=== PATIENT | female | born 1955 | race Caucasian/White ===

== ENCOUNTER 2018-02-04 08:20 | Outpatient (CLI) | payer BC, OTHER ==
[2018-02-04 12:57] LABS: BASOPHILS # (AUTO) 0.1 10^3/uL (0.0-0.1); BASOPHILS % (AUTO) 1.3 %; EOSINOPHILS # (AUTO) 0.2 10^3/uL (0.0-0.7); EOSINOPHILS % (AUTO) 3.7 %; HGB - HEMOGLOBIN 14.8 g/dL (12.0-16.0); LYMPHOCYTES % (AUTO) 34.4 %; MEAN CORPUSCULAR HEMOGLOBIN 29.3 pg (27.0-31.0); MEAN CORPUSCULAR HGB CONC 33.5 g/dL (32.0-36.0); MEAN CORPUSCULAR VOLUME 87.5 fL (81.0-99.0); MEAN PLATELET VOLUME 9.1 fL (7.9-10.8); MONOCYTES # (AUTO) 0.5 10^3/uL (0.0-1.0); MONOCYTES % (AUTO) 8.9 %; NEUTROPHILS % (AUTO) 51.7 %; PLT - PLATELET COUNT 324 10^3/uL (130-450); RED BLOOD COUNT 5.03 10^6/uL (4.20-5.40); RED CELL DISTRIBUTION WIDTH 14.3 % (12.0-15.0); WHITE BLOOD COUNT 5.7 x10^3/uL (4.8-10.8)
[2018-02-04 13:13] LABS: ALBUMIN 4.6 g/dL (3.2-5.5); ALBUMIN/GLOBULIN RATIO 1.4 (1.0-2.2); ALKALINE PHOSPHATASE 76 IU/L (42-121); ALT ALANINE AMINOTRANSFERASE 25 IU/L (10-60); AST ASPARTATE AMINOTRANSFERASE 23 IU/L (10-42); BILIRUBIN,TOTAL 0.7 mg/dL (0.2-1.0); BUN - BLOOD UREA NITROGEN 21 mg/dL (6-20); CALCIUM 9.8 mg/dL (8.5-10.3); CARBON DIOXIDE - CO2 27 mmol/L (21-32); CHLORIDE 103 mmol/L (101-111); CHOLESTEROL 287 mg/dL; CREATININE 0.8 mg/dL (0.4-1.0); GFR - MDRD 72 (>89); GLUCOSE 86 mg/dL (70-100); HDL CHOLESTEROL 71 mg/dL; LDL CHOLESTEROL,CALCULATED 201 mg/dL; LDL/HDL RATIO 2.8 (<4.4); SODIUM 135 mmol/L (135-145); TOTAL PROTEIN 7.8 g/dL (6.7-8.2); VLDL CHOLESTEROL 15 mg/dL
== END 2018-02-04 08:21 | disposition home or self-care (01) ==
LOC: LAB.R 08:20
PROVIDERS: ATTEND Physician Assistant Medical
DX: Z00.00 Encounter for general adult medical examination without abnormal findings (principal)
CPT/HCPCS: 80053; 80061; 83721; 84443; 85025

== ENCOUNTER 2018-03-18 09:52 | Outpatient (CLI) | payer OTHER ==
--- NOTE | 2018-03-19 17:16 | Mammography Report ---
Reason: MAMMOGRAPHIC SCREENING FOR BREAST CANCER Procedure Date: 03/18/2018 Accession Number: [id number] / [id number] Procedure: KWAN - Screening Mammo Dig Bilat CPT Code: FULL RESULT: EXAM: Screening Mammo Dig Bilat DATE: 03/18/2018 10:19 AM CLINICAL HISTORY: 62-year-old female presents for screening mammogram. TECHNIQUE: Bilateral CC and MLO views were obtained. COMPARISON: 12/18/2015, 07/01/2010, 03/27/2008. FINDINGS: The breasts demonstrate scattered fibroglandular densities bilaterally. No suspicious masses, clustered microcalcifications, or regions of architectural distortion are identified. IMPRESSION: Negative examination RECOMMENDATION: Routine annual screening unless otherwise clinically indicated. BIRADS CATEGORY 1: Negative STANDARD QUALIFYING STATEMENTS: 1. This examination was not reviewed with the aid of Computer-Aided Detection (CAD). 2. A negative or benign imaging report should not delay biopsy if clinically suspicious findings are present. Consider surgical consultation if warrented. More than 5% of cancers are not identified by imaging. 3. Dense breasts may obscure an underlying neoplasm. 4. This examination was reviewed without the aid of 3D breast imaging (tomosynthesis).
== END 2018-03-18 09:53 | disposition home or self-care (01) ==
LOC: DI 09:52
PROVIDERS: ATTEND Physician Assistant Medical
DX: Z12.31 Encounter for screening mammogram for malignant neoplasm of breast (principal)
CPT/HCPCS: 77067

== ENCOUNTER 2019-01-28 07:38 | Outpatient (CLI) | payer OTHER ==
[2019-01-28 08:20] LABS: ALBUMIN 4.6 g/dL (3.2-5.5); ALBUMIN/GLOBULIN RATIO 1.5 (1.0-2.2); ALKALINE PHOSPHATASE 87 IU/L (42-121); ALT ALANINE AMINOTRANSFERASE 23 IU/L (10-60); AST ASPARTATE AMINOTRANSFERASE 22 IU/L (10-42); BILIRUBIN,TOTAL 0.8 mg/dL (0.2-1.0); BUN - BLOOD UREA NITROGEN 20 mg/dL (6-20); CARBON DIOXIDE - CO2 22 mmol/L (21-32); CHLORIDE 104 mmol/L (101-111); CHOL/HDL RATIO 3.8 (<4.4); CHOLESTEROL 261 mg/dL; CREATININE 0.7 mg/dL (0.4-1.0); GFR - MDRD 84 (>89); GLUCOSE 95 mg/dL (70-100); HDL CHOLESTEROL 69 mg/dL; LDL CHOLESTEROL,CALCULATED 178 mg/dL; LDL/HDL RATIO 2.6 (<4.4); SODIUM 139 mmol/L (135-145); TOTAL PROTEIN 7.7 g/dL (6.7-8.2); VLDL CHOLESTEROL 14 mg/dL
[2019-01-28 08:27] LABS: BASOPHILS # (AUTO) 0.1 10^3/uL (0.0-0.1); BASOPHILS % (AUTO) 0.9 %; EOSINOPHILS # (AUTO) 0.2 10^3/uL (0.0-0.7); HGB - HEMOGLOBIN 14.5 g/dL (12.0-16.0); LYMPHOCYTES % (AUTO) 36.3 %; MEAN CORPUSCULAR HEMOGLOBIN 28.9 pg (27.0-31.0); MEAN CORPUSCULAR HGB CONC 32.5 g/dL (32.0-36.0); MEAN CORPUSCULAR VOLUME 88.8 fL (81.0-99.0); MEAN PLATELET VOLUME 9.7 fL (7.9-10.8); MONOCYTES # (AUTO) 0.5 10^3/uL (0.0-1.0); MONOCYTES % (AUTO) 8.5 %; NEUTROPHILS # (AUTO) 2.8 10^3/uL (1.5-6.6); NEUTROPHILS % (AUTO) 49.9 %; PLT - PLATELET COUNT 301 10^3/uL (130-450); RED BLOOD COUNT 5.02 10^6/uL (4.20-5.40); WHITE BLOOD COUNT 5.5 x10^3/uL (4.8-10.8)
== END 2019-01-28 07:39 | disposition home or self-care (01) ==
LOC: LAB 07:38
PROVIDERS: ATTEND Nurse Practitioner
DX: Z00.00 Encounter for general adult medical examination without abnormal findings (principal); E78.2 Mixed hyperlipidemia
CPT/HCPCS: 36415; 80053; 80061; 83721; 84443; 85025

== ENCOUNTER 2019-03-20 16:23 | Outpatient (CLI) | payer MEDICARE, OTHER ==
--- NOTE | 2019-03-21 01:17 | Ultrasound Report ---
Reason: PELVIC PAIN Procedure Date: 03/20/2019 Accession Number: [id number] / [id number] Procedure: US - Pelvic w/Transvaginal CPT Code: FULL RESULT: EXAM: PELVIC ULTRASOUND WITH TRANSVAGINAL EXAM DATE: 03/20/2019 05:36 PM. CLINICAL HISTORY: PELVIC PAIN. Left pelvic pain palpated by physician. History of tubal ligation in 1979. COMPARISON: None. TECHNIQUE: Realtime transabdominal pelvic scan performed to identify the uterus and adnexa and as an overview of other pelvic structures, followed by transvaginal scan to provide greater detail of the uterus and adnexa, with static image documentation. FINDINGS: Uterus: 8.5 x 5.2 x 6.2 cm, volume 144.7 cc. Anteverted position. Large round solid heterogeneous mass seen in the mid uterus replacing the endometrium, measures 3.8 x 4.4 x 3.8 cm. Areas of vascularity seen within this mass. This could represent a large submucosal fibroid versus an endometrial mass as seen with endometrial malignancy. Further workup recommended. A pelvic MRI without and with contrast could be obtained to further evaluate. Cervix: Unremarkable. Right Ovary: The right ovary is not seen, obscured by bowel gas. Visualized right adnexa appears unremarkable. Left Ovary: 2.5 x 1.9 x 2.7 cm, volume 6.7 cc. Normal echotexture and blood flow. Free Fluid: None. IMPRESSION: 1. Large round solid heterogeneous mass seen in the mid uterus replacing the endometrium, measures 3.8 x 4.4 x 3.8 cm. Areas of vascularity seen within this mass. This could represent a large submucosal fibroid versus an endometrial mass as seen with endometrial malignancy. Further workup recommended. A pelvic MRI without and with contrast could be obtained to further evaluate. RADIA
== END 2019-03-20 16:24 | disposition home or self-care (01) ==
LOC: DI 16:23
PROVIDERS: ATTEND Nurse Practitioner
DX: N85.9 Noninflammatory disorder of uterus, unspecified (principal)
CPT/HCPCS: 76830; 76856

== ENCOUNTER 2019-03-22 10:30 | Outpatient (CLI) | payer MEDICARE ==
[2019-03-22] MEDS ORDERED: GADOBUTROL 7.5 MMOL/7.5 ML VIAL IVP ONE (11:40)
[2019-03-22] MEDS ORDERED: GADOBUTROL 7.5 MMOL/7.5 ML VIAL ONE (11:41)
--- NOTE | 2019-03-22 12:24 | MRI Report ---
Reason: PELVIC MASS Procedure Date: 03/22/2019 Accession Number: [id number] / [id number] Procedure: MRI - Pelvis W/WO CPT Code: FULL RESULT: EXAM: MRI PELVIS WITHOUT AND WITH CONTRAST EXAM DATE: 03/22/2019 11:50 AM. CLINICAL HISTORY: Pelvic mass. Abnormal ultrasound. COMPARISON: PELVIC W/TRANSVAGINAL 03/20/2019 4:33 PM. TECHNIQUE: Multiplanar, multisequence T1-weighted and fluid-sensitive sequences of the pelvis before and after administration of intravenous contrast. IV contrast: 7.5 mL Gadavist. Other: None. FINDINGS: Uterus: The uterus is slightly enlarged measuring 8.6 x 6.1 x 5.9 cm. There is a dominant low signal mass in the anterior mid uterine segment measuring 4.4 x 3.8 x 4.8 cm characteristic for a fibroid. The fibroid is submucosal in location. On postcontrast imaging there is minor enhancement suggesting partial viability. The remainder portions of the uterus are intact. Endometrium: The endometrial lining is distorted due to underlying fibroid. Otherwise, no thickening or masses identified. Cervix/vagina: Unremarkable. Ovaries: The ovaries are likely atrophic but obscured by metallic clip artifact presumably related to prior tubal ligation/occlusion procedure. No adnexal abnormality is identified. Pelvic Cavity: The visualized bowel, bladder, and urethra are unremarkable. No lymphadenopathy. No free fluid in the pelvis. Other: Osseous structures are unremarkable. No marrow signal abnormality or significant degenerative changes seen. IMPRESSION: 1. Mildly enlarged uterus secondary to 4.4 x 3.8 x 4.8 cm submucosal mass in the anterior mid uterine segment most compatible with a partially viable fibroid. 2. No pelvic abnormality demonstrated otherwise. Atrophic ovaries partially obscured by metallic artifact from tubal procedure seen. RADIA
== END 2019-03-22 10:31 | disposition home or self-care (01) ==
LOC: DI 10:30
PROVIDERS: ATTEND Nurse Practitioner
DX: D25.0 Submucous leiomyoma of uterus (principal)
CPT/HCPCS: 72197; A9585

== ENCOUNTER 2019-04-28 11:00 | Outpatient (CLI) | payer MEDICARE ==
[2019-04-28 11:24] LABS: BASOPHILS # (AUTO) 0.1 10^3/uL (0.0-0.1); BASOPHILS % (AUTO) 0.9 %; EOSINOPHILS # (AUTO) 0.2 10^3/uL (0.0-0.7); EOSINOPHILS % (AUTO) 2.4 %; HGB - HEMOGLOBIN 14.7 g/dL (12.0-16.0); LYMPHOCYTES # (AUTO) 2.3 10^3/uL (1.5-3.5); LYMPHOCYTES % (AUTO) 35.6 %; MEAN CORPUSCULAR HEMOGLOBIN 30.1 pg (27.0-31.0); MEAN CORPUSCULAR VOLUME 91.2 fL (81.0-99.0); MEAN PLATELET VOLUME 9.5 fL (7.9-10.8); MONOCYTES # (AUTO) 0.6 10^3/uL (0.0-1.0); MONOCYTES % (AUTO) 9.7 %; NEUTROPHILS # (AUTO) 3.4 10^3/uL (1.5-6.6); NEUTROPHILS % (AUTO) 51.1 %; PLT - PLATELET COUNT 334 10^3/uL (130-450); RED BLOOD COUNT 4.88 10^6/uL (4.20-5.40); RED CELL DISTRIBUTION WIDTH 14.1 % (12.0-15.0); WHITE BLOOD COUNT 6.6 x10^3/uL (4.8-10.8)
[2019-04-28 11:38] LABS: ALBUMIN 4.7 g/dL (3.2-5.5); ALBUMIN/GLOBULIN RATIO 1.4 (1.0-2.2); BILIRUBIN,TOTAL 0.7 mg/dL (0.2-1.0); CALCIUM 10.1 mg/dL (8.5-10.3); CREATININE 0.6 mg/dL (0.4-1.0)
--- NOTE | 2019-04-28 14:38 | CONSULTATION NOTE ---
Consultation Report: Anesthesia pre-op consult. 63 yo F for TLAVH w/hx of bad reaction to anesthesia in following BTL. Pt states that she was extremely sore t/o her entire body for 2-3 days. Given the information and patient ability to recall the events, I suspect the pt was given succinylcholine as paralytic with residual muscle soreness from fasciculations associated with the drug. She state she did not have that same reaction with other procedures (not involving paralytics) I explained that can be avoided with her future surgery and that should prevent that same result. NPO status, types of drugs used, airway, overnight stay, and TAP blocks were also briefly discussed.
== END 2019-04-28 11:01 | disposition home or self-care (01) ==
LOC: LAB 11:00 → RT 11:01
PROVIDERS: ATTEND Obstetrics & Gynecology
DX: Z01.810 Encounter for preprocedural cardiovascular examination (principal); Z12.4 Encounter for screening for malignant neoplasm of cervix; R19.00 Intra-abdominal and pelvic swelling, mass and lump, unspecified site; R10.2 Pelvic and perineal pain
CPT/HCPCS: 36415; 80053; 85025; 93005

== ENCOUNTER 2019-04-28 11:27 | Outpatient (CLI) | payer MEDICARE ==
--- NOTE | 2019-04-29 08:39 | XRAY Report ---
Reason: UTERINE MASS; PELVIC PAIN, PRE OP Procedure Date: 04/28/2019 Accession Number: [id number] / [id number] Procedure: XR - Chest 2 View X-Ray CPT Code: 31428 Final Report FULL RESULT: EXAM: CHEST RADIOGRAPHY EXAM DATE: 04/28/2019 11:29 AM. CLINICAL HISTORY: UTERINE MASS; PELVIC PAIN, PRE OP. COMPARISON: None. TECHNIQUE: 2 views. FINDINGS: Lungs/Pleura: No focal opacities evident. No pleural effusion. No pneumothorax. Normal volumes. Mediastinum: Heart and mediastinal contours are unremarkable. Atheromatous calcification seen at the aortic arch. Other: None. IMPRESSION: No evidence for acute cardiopulmonary process. RADIA
== END 2019-04-28 11:28 | disposition home or self-care (01) ==
LOC: DI 11:27
PROVIDERS: ATTEND Obstetrics & Gynecology
DX: Z01.89 Encounter for other specified special examinations (principal); Z12.4 Encounter for screening for malignant neoplasm of cervix; R19.00 Intra-abdominal and pelvic swelling, mass and lump, unspecified site; R10.2 Pelvic and perineal pain
CPT/HCPCS: 36415; 71046; 80053; 85025; 93005

== ENCOUNTER 2019-05-11 06:13 | Day surgery (SDC) | payer MEDICARE ==
[2019-05-11] MEDS ORDERED: LACTATED RINGERS 1,000 ML IV ONE ×3 (06:24→11:28)
[2019-05-11] MEDS ORDERED: ACETAMINOPHEN 1,000 MG/100 ML 100 ML IV ONE (06:25)
[2019-05-11] MEDS ORDERED: CELECOXIB 100 MG CAPSULE PO ONE (06:26)
[2019-05-11] MEDS ORDERED: GABAPENTIN 400 MG CAPSULE ONE (06:27)
[2019-05-11] MEDS ORDERED: CEFAZOLIN SODIUM IN 0.9 % NACL 2 GM/100 ML BAG IV ONE (06:31)
--- NOTE | 2019-05-11 07:25 | ANESTHESIA ---
Pre-Anesthesia VS, & Labs - Diagnosis uterine mass, pelvic pain - Procedure total laparoscopic hysterectomy Vital Signs: Temp Pulse Resp BP Pulse Ox 36.6 C 84 16 126/84 H 96 05/11/19 06:41 05/11/19 06:41 05/11/19 06:41 05/11/19 06:41 05/11/19 06:41 Height 5 ft 3 in Weight (kg) 74 kg - NPO >8 hours - Is Patient ?: No - Lab Results Lab results reviewed: Yes Home Medications and Allergies Clobetasol Propionate/Emoll [Clobetasol Emollient 0.05% Crm] 1 applic TP DAILY 04/28/19 Multivitamin [Multiple Vitamins] 1 each PO DAILY 04/28/19 [place]-3S/Dha/Epa/Fish Oil [Fish Oil 1,200 mg Softgel] 1 each PO ONCE 04/28/19 Allergies/Adverse Reactions: Allergies Allergy/AdvReac Type Severity Reaction Status Date / Time Sulfa (Sulfonamide AdvReac Emesis Verified 04/28/19 13:41 Antibiotics) Anes History & Medical History - Anesthetic History Anesthesia Complications: reports: No previous complications, Muscle weakness (sore for 2-3 days after succs for BTL in 1980s) Family history of Anesthesia Complications: Denies Family history of Malignant Hyperthermia: Denies Exam General: Alert, Oriented x3, Cooperative Dental: WNL Mouth Openin Fingerbreadth Neck Mobility: Normal Mallampati classification: II Thyromental Distance: 4-6 cm Respiratory: Lungs clear, Normal breath sounds, No respiratory distress, No accessory muscle use Cardiovascular: Regular rate Neurological: Normal speech Mental/Cognitive Status: Alert/Oriented X3, Normal for patient Cognitive Status: Within normal limits Plan Anesthesia Type: General, Transverse Abdominis Plane (TAP) Block (possible, if open) Consent for Procedure(s) Verified and Reviewed: Yes Code Status: Attempt Resuscitation ASA classification: 2-Mild systemic disease Is this case an emergency?: No
[2019-05-11] MEDS ORDERED: LIDOCAINE MPF 2%-EPI 1:200000 20 ML VIAL ONE ×2 (07:44→08:29)
[2019-05-11] MEDS ORDERED: LIDOCAINE 2%-EPI 1:100000 20 ML MDV SUBQ ONE ×2 (08:15)
[2019-05-11] MEDS ORDERED: METHYLENE BLUE 0.5% 50 MG/10 ML AMPULE ONE (09:43)
--- NOTE | 2019-05-11 11:07 | OPERATIVE REPORT ---
Operative Report - General Procedure Date: 05/11/19 Planned Procedure: TLH BSO Pre-Op Diagnosis: Pelvic pain, uterine mass Procedure Performed: TLH, BSO Post Op Diagnosis: Intracavitary uterine mass, adhesion of left fallopian tube - Procedure Note Primary Surgeon: loc Secondary Surgeon: marysol Anesthesia Provider: Italo Anesthesia Technique: General ET tube Pathology: Uterus, ovaries, fallopian tubes IV Fluids (mL): 1,500 Estimated Blood Loss (mL): 150 Urine Output (mL): 200 (blue tinged) Indications: Pelvic pain, uterine mass Findings: Adhesed left fallopian tube to posterior sidewall extending into the cul de sac Both fallopian tubes "clipped" in their midline with a tubal device Intracavitary mass c/w fibroid Normal ovaries and pelvic peritoneum Complications: None
[2019-05-11] MEDS ORDERED: ONDANSETRON ODT 4 MG TABLET TL PRN (11:15)
[2019-05-11] MEDS ORDERED: ONDANSETRON 4 MG/2 ML VIAL IVP PRN (11:15)
[2019-05-11] MEDS ORDERED: oxyCODONE 5 MG TABLET PO PRN (11:15)
[2019-05-11] MEDS ORDERED: LACTATED RINGERS 1,000 ML IV SCH (12:00)
[2019-05-11] MEDS: ACETAMINOPHEN 500 MG TABLET PO SCH ×2 (13:00→15:48)
[2019-05-11] MEDS ORDERED: SIMETHICONE CHEW 80 MG TABLET PO SCH (14:00)
[2019-05-11 15:41] VITALS: BP 115/64
--- NOTE | 2019-05-11 16:29 | Discharge Plan ---
Discharge Plan Problem Reviewed?: Yes Disposition: Home, Self Care Condition: Good Diet: Regular Activity Restrictions: No lifting more than 10lbs. Nothing in the vagina. Shower Restrictions: Yes (Do not shower until noon on 05/12. No baths. ) Driving Restrictions: No No Smoking: If you smoke, Please STOP! Call for help. Follow-up with: Olimpia Renee MD [Provider Admit Priv/Credential] - (Has fuv in 9 days. )
--- NOTE | 2019-05-11 16:34 | PROVIDER PROGRESS NOTE ---
Objective - Vital Signs/Intake & Output Vital Signs: Vital Signs x48h Temp Pulse Pulse Pulse Resp BP BP 05/11/19 15:40 96.8 F L 64 24 115/64 05/11/19 13:45 97.7 F 77 16 105/54 L 05/11/19 12:45 97.0 F L 72 16 112/65 05/11/19 11:45 97.5 F L 74 16 109/64 05/11/19 11:40 97.9 F 69 14 108/64 05/11/19 11:25 97.7 F 66 16 110/72 05/11/19 11:20 97.7 F 68 16 105/68 05/11/19 11:10 97.7 F 68 14 105/70 05/11/19 11:05 97.7 F 84 16 107/64 05/11/19 11:00 98.2 F 90 16 94/57 L 05/11/19 10:55 98.2 F 76 16 96/60 05/11/19 10:52 98.4 F 78 14 101/57 L Pulse Ox 05/11/19 15:40 97 05/11/19 13:45 94 05/11/19 12:45 95 05/11/19 11:45 96 05/11/19 11:40 97 05/11/19 11:25 96 05/11/19 11:20 98 05/11/19 11:10 96 05/11/19 11:05 97 05/11/19 11:00 95 05/11/19 10:55 95 05/11/19 10:52 94 Intake & Output: Intake & Output 05/08/19 05/09/19 05/10/19 05/11/19 23:59 23:59 23:59 23:59 Intake Total 1800 Output Total 750 Balance 1050 Assessment/Plan - Problem List (1) Pelvic pain in female Impression: 63yo POD #0 s/p TLH, BSO, cystoscopy for pelvic pain. Doing well postop. Feeling pretty alert but yet can't keep eyes open well. OOB OK once with assist. Urinated once, fully, no sensation of incomplete emptying Pain is minimal. Ate crackers and OJ. O: AVSS. Alert, eyes closing, NAD Abd soft, nt/nd Incisions c/d/i without erythema LE without c/c/e A/P: Routine progressive postop care. Saline lock IV. Pt is dedicated to opiod-free course and is declining scheduled NSAIDs as well. If patient can ambulate without assistance then she can be discharged home whenever she desires.
[2019-05-11] MEDS ORDERED: NAPROXEN 250 MG TABLET PO SCH (18:00)
[2019-05-11] MEDS ORDERED: DOCUSATE SODIUM 100 MG CAPSULE PO SCH (21:00)
--- NOTE | 2019-05-11 22:35 | OPERATIVE REPORT ---
DATE OF SERVICE: 05/11/2019 Physician: Olimpia Renee MD PREOPERATIVE DIAGNOSES 1. Pelvic pain and dyspareunia. 2. Uterine mass. POSTOPERATIVE DIAGNOSES 1. Pelvic pain and dyspareunia. 2. Uterine mass. 3. Pelvic adhesive disease. PROCEDURE PERFORMED: Total laparoscopic hysterectomy with bilateral salpingo-oophorectomy, and cysto scopy. SURGEON: Olimpia Renee MD. HEAD HOUSEKEEPER: Sivan. ANESTHESIA: General with an ET tube. ESTIMATED BLOOD LOSS: 150 mL. IV FLUIDS: 1500 mL. URINE OUTPUT: 200 mL, blue tinged. COUNTS: Correct x2. COMPLICATIONS: None apparent. DISPOSITION: Stable to recovery room. PROPHYLAXIS: SCDs to bilateral lower extremities; 2 grams of Ancef prior to the surgical start. SPECIMENS: Uterus, fallopian tubes, ovaries and cervix sent to pathology. FINDINGS 1. Intracavitary uterine mass consistent with a fibroid. 2. Adhesed left fallopian tube to the posterior sidewall and extending down into the area of the cul -de-sac. 3. Both fallopian tubes were transected with a tubal ligation device. 4. Normal-appearing ovaries and pelvic peritoneum. COUNSELING: The patient has a new onset of dyspareunia and a uterine mass. She wanted definitive cole rgical therapy, and so she chose hysterectomy, salpingectomy was recommended to decrease cancer risk. Ultimately, the patient also chose to have a bilateral oophorectomy to reduce the risk of ongoing p ain, reoperation, or ovarian cancer. DESCRIPTION OF PROCEDURE: The patient was brought to the operating room, where she was induced with general anesthesia. She was placed in low lithotomy in [facility]. Her arms were tucked at h er sides. A bimanual examination revealed a sharply anteverted uterus and no adnexal masses. She wa s prepped and draped in the usual sterile fashion. A speculum was placed, and the cervix was visuali zed and grasped with a single-tooth tenaculum. A Pryv uterine manipulator was placed into the cavit y and the balloon was inflated. The tenaculum was removed and the cup was pressed flush against the cervix. A Retana catheter was then placed. My over gloves were changed. For the laparoscopy, all por ts were placed under direct visualization. All of them were 5 mm, 10-mm curvilinear incision was mad e in the inferior portion of the umbilicus. This was first numbed with 2% lidocaine with epinephrine . Local was used for the other port sites as well. A total of 28 mL of local was used. The abdomin al tissue was tented upward and a 5-mm Visiport was placed into the peritoneal cavity. Opening press ure was low and the abdomen was insufflated to 15 mmHg. Inspection revealed a normal liver margin. The patient had some adhesions from the ascending colon to the right lower quadrant peritoneum. Thes e were not dissected during the surgery. The patient was placed in Trendelenburg, and she had a carmen ycardic event. The pneumoperitoneum was released and she was flattened out. She responded well to a nesthesia's treatment of the issue and then was able to tolerate insufflation and Trendelenburg again . A slightly enlarged and lobular uterus was visualized. Normal adnexa were seen. Two lateral troc ars were then placed 2 cm medial to the ASIS on each side. The fimbriated portion of the left fallop bob tube was excised, as it was in the way of the dissection. The infundibulopelvic ligament on the left side was divided and the dissection was continued down to the round ligament, which was divided in its mid portion. Dissection of the anterior leaf of the broad ligament was carried down to the le tray of the lower uterine segment. The incision was then carried towards the midline in order to deve lop a bladder flap. The vasculature was skeletonized as much as possible. The same procedure was th en carried forth on the contralateral side. The left fallopian tube was found to be adherent to the posterior leaf of the broad ligament, extending almost to the level of the cul-de-sac. This was diss ected free and removed from the trocar. The uterine vasculature was then taken on both sides by aminta collins medially to each prior dissection. The anterior bladder flap was further developed. The colpot viviane was performed with both the LigaSure and with a Harmonic scalpel. Visualization of the pedicles revealed the absence of bleeding. On attempting to remove the uterus from the vagina, the VCare came off the specimen. A right-angle r etractor and a posterior weighted speculum were placed and the cervix was grasped with a tenaculum. The fundus could not be delivered through the vaginal cuff and so the uterus was bivalved with a 10 b lade. After the cavity was opened, the intracavitary mass was visualized. This was grasped with a d ouble-tooth tenaculum and the specimen was removed from the patient. The specimen was intact with juani th ovaries visualized. The vaginal cuff was then closed with a running layer of 0 Vicryl. Hemostasi s was excellent. The Retana catheter was removed and cystoscopy was performed. The bladder was free of masses or sutures. There was no blood in the bladder. Bilateral brisk ureteral efflux was seen. The patient's bladder was emptied and the cystoscope was removed. The skin incisions were closed wi th subcutaneous 4-0 Monocryl, and then with Dermabond over top. The patient was returned to the supi ne position prior to waking. TD: 05/11/2019 12:04
== END 2019-05-11 18:45 | disposition home or self-care (01) ==
LOC: SDS 06:13 → MS2 11:15 → UNDOADMIN 11:15 → MS2 11:15 → SDS 18:45 → UNDODISIN 18:45
PROVIDERS: ATTEND Obstetrics & Gynecology
PROC: 0TJB8ZZ Inspection of Bladder, Via Natural or Artificial Opening Endoscopic (ICD-10-PCS; 2019-05-11)
PROC: 0UT94ZZ Resection of Uterus, Percutaneous Endoscopic Approach (ICD-10-PCS; principal; 2019-05-11 07:30)
PROC: 0UT74ZZ Resection of Bilateral Fallopian Tubes, Percutaneous Endoscopic Approach (ICD-10-PCS; 2019-05-11 07:30)
DX: D25.1 Intramural leiomyoma of uterus (principal); N73.6 Female pelvic peritoneal adhesions (postinfective); E66.9 Obesity, unspecified; Z68.30 Body mass index [BMI] 30.0-30.9, adult; E78.5 Hyperlipidemia, unspecified
CPT/HCPCS: 58571; 88307; A9270; J0131; J0690; J7120

== ENCOUNTER 2020-04-03 08:15 | Outpatient (CLI) | payer MEDICARE ==
[2020-04-03 08:31] LABS: BASOPHILS # (AUTO) 0.1 10^3/uL (0.0-0.1); BASOPHILS % (AUTO) 1.1 %; EOSINOPHILS # (AUTO) 0.2 10^3/uL (0.0-0.7); EOSINOPHILS % (AUTO) 3.9 %; HGB - HEMOGLOBIN 14.7 g/dL (12.0-16.0); LYMPHOCYTES # (AUTO) 2.2 10^3/uL (1.5-3.5); LYMPHOCYTES % (AUTO) 35.8 %; MEAN CORPUSCULAR HEMOGLOBIN 30.6 pg (27.0-31.0); MEAN CORPUSCULAR HGB CONC 33.9 g/dL (32.0-36.0); MEAN CORPUSCULAR VOLUME 90.2 fL (81.0-99.0); MEAN PLATELET VOLUME 9.3 fL (7.9-10.8); MONOCYTES # (AUTO) 0.5 10^3/uL (0.0-1.0); MONOCYTES % (AUTO) 8.8 %; NEUTROPHILS # (AUTO) 3.1 10^3/uL (1.5-6.6); NEUTROPHILS % (AUTO) 50.1 %; PLT - PLATELET COUNT 331 10^3/uL (130-450); RED CELL DISTRIBUTION WIDTH 13.9 % (12.0-15.0); WHITE BLOOD COUNT 6.1 x10^3/uL (4.8-10.8)
[2020-04-03 08:46] LABS: ALBUMIN 4.4 g/dL (3.2-5.5); ALBUMIN/GLOBULIN RATIO 1.4 (1.0-2.2); ALKALINE PHOSPHATASE 105 IU/L (42-121); ALT ALANINE AMINOTRANSFERASE 22 IU/L (10-60); AST ASPARTATE AMINOTRANSFERASE 20 IU/L (10-42); BILIRUBIN,TOTAL 0.6 mg/dL (0.2-1.0); BUN - BLOOD UREA NITROGEN 20 mg/dL (6-20); CALCIUM 9.7 mg/dL (8.5-10.3); CARBON DIOXIDE - CO2 22 mmol/L (21-32); CHLORIDE 106 mmol/L (101-111); CHOL/HDL RATIO 3.6 (<4.4); CHOLESTEROL 283 mg/dL; CREATININE 0.7 mg/dL (0.4-1.0); GLUCOSE 101 mg/dL (70-100); HDL CHOLESTEROL 78 mg/dL; LDL CHOLESTEROL,CALCULATED 194 mg/dL; LDL/HDL RATIO 2.5 (<4.4); SODIUM 138 mmol/L (135-145); TOTAL PROTEIN 7.5 g/dL (6.7-8.2); VLDL CHOLESTEROL 11 mg/dL
== END 2020-04-03 08:16 | disposition home or self-care (01) ==
LOC: LAB 08:15
PROVIDERS: ATTEND Nurse Practitioner
DX: Z00.00 Encounter for general adult medical examination without abnormal findings (principal); Z78.0 Asymptomatic menopausal state; E78.2 Mixed hyperlipidemia; E66.3 Overweight
CPT/HCPCS: 36415; 80053; 80061; 83721; 84443; 85025

== ENCOUNTER 2020-05-11 11:53 | Outpatient (CLI) | payer MEDICARE ==
--- NOTE | 2020-05-11 16:40 | DEXA Report ---
PROCEDURE: Dexa Spine and/or Hip INDICATIONS: POST MENOPAUSAL TECHNIQUE: Dual energy x-ray absorptiometry (DXA) was performed on a E-Generator System. Regions measur ed are the AP Spine, femoral neck, and if needed forearm. COMPARISON: None. FINDINGS: Lumbar Spine: Bone Mineral Density 1.098 g/cm/cm,T score -0.7, normal Left Hip: Bone Mineral Density 1.014 g/cm/cm,T score 0.1, normal Left Femoral Neck: Bone Mineral Density 0.858 g/cm/cm, T score -1.3, osteopenia (T score greater or equal to -1.0: NORMAL) (T score from -1.1 to -2.4: OSTEOPENIA) (T score less than or equal to -2.5 to: OSTEOPOROSIS) Impression: Osteopenia. Patients with diagnosis of osteoporosis or osteopenia should have regular bone mineral density assess ment. For those eligible for Medicare, routine testing is allowed once every 2 years. Testing frequ ency can be increased for patients who have rapidly progressing disease or for those who are receivin g medical therapy to restore bone mass. Reviewed by: Alycia Garza MD, PhD on 05/11/2020 4:39 PM PST Approved by: Alycia Garza MD, PhD on 05/11/2020 4:39 PM PST Station ID: [id number]
== END 2020-05-11 11:54 | disposition home or self-care (01) ==
LOC: DI 11:53
PROVIDERS: ATTEND Nurse Practitioner
DX: M85.88 Other specified disorders of bone density and structure, other site (principal)
CPT/HCPCS: 77080

== ENCOUNTER 2020-05-11 11:54 | Outpatient (CLI) | payer MEDICARE ==
--- NOTE | 2020-05-14 14:53 | Mammography Report ---
BILATERAL DIGITAL SCREENING MAMMOGRAM 3D/2D: 05/11/2020 CLINICAL: Routine screening. Comparison is made to exams dated: 03/18/2018 mammogram, 12/18/2015 mammogram, 07/01/2010 mammogram, an d 03/27/2008 mammogram - [facility]. There are scattered fibroglandular elements in both breasts. No significant masses, calcifications, or other findings are seen in either breast. There has been no significant interval change. IMPRESSION: NEGATIVE There is no mammographic evidence of malignancy. A 1 year screening mammogram is recommended. This exam was interpreted at Station ID: [id number]. NOTE: For mammograms, a report in lay terms will be sent to the patient. Approximately 15% of breast malignancies will not be visualized mammographically. In the management of a palpable breast mass, a negative mammogram must not discourage biopsy of a clinically suspicious lesion. Electronically Signed By: Ayan Mitchell M.D. aty/penrad:05/11/2020 13:13:17 ACR BI-RADS Category 1: Negative 3341F PARENCHYMAL PATTERN: (A) - The breast(s) demonstrate(s) scattered fibroglandular densities. BI-RADS CATEGORY: (1) - 1 RECOMMENDATION: (ANNUAL) - Recommend routine annual screening mammography. [id number] 1 year screening LATERALITY: (B)
== END 2020-05-11 11:55 | disposition home or self-care (01) ==
LOC: DI 11:54
PROVIDERS: ATTEND Nurse Practitioner
DX: Z12.31 Encounter for screening mammogram for malignant neoplasm of breast (principal)
CPT/HCPCS: 77063; 77067

== ENCOUNTER 2021-04-24 12:57 | Outpatient (CLI) | payer MEDICARE | END 2021-04-24 12:58 | disposition home or self-care (01) | LOC: COV 12:57 | PROVIDERS: ATTEND Family Medicine | DX: U07.1 COVID-19 (principal) ==

== ENCOUNTER 2021-05-01 08:37 | Outpatient (CLI) | payer MEDICARE ==
[2021-05-01 09:04] LABS: BILIRUBIN,URINE NEGATIVE (NEGATIVE); GLUCOSE, URINE (UA) NEGATIVE (NEGATIVE); KETONES,URINE (UA) NEGATIVE (NEGATIVE); LEUKOCYTE ESTERASE, URINE NEGATIVE (NEGATIVE); NITRITE,URINE NEGATIVE (NEGATIVE); OCCULT BLOOD,URINE NEGATIVE (NEGATIVE); PROTEIN,URINE NEGATIVE (NEGATIVE); UROBILINOGEN,URINE 0.2 (NORMAL) E.U./dL (NORMAL)
[2021-05-01 09:05] LABS: BASOPHILS # (AUTO) 0.1 10^3/uL (0.0-0.1); BASOPHILS % (AUTO) 1.6 %; EOSINOPHILS # (AUTO) 0.1 10^3/uL (0.0-0.7); EOSINOPHILS % (AUTO) 2.8 %; HGB - HEMOGLOBIN 15.1 g/dL (12.0-16.0); LYMPHOCYTES % (AUTO) 39.3 %; MEAN CORPUSCULAR HEMOGLOBIN 30.1 pg (27.0-31.0); MEAN CORPUSCULAR HGB CONC 33.6 g/dL (32.0-36.0); MEAN CORPUSCULAR VOLUME 89.8 fL (81.0-99.0); MEAN PLATELET VOLUME 9.5 fL (7.9-10.8); MONOCYTES # (AUTO) 0.5 10^3/uL (0.0-1.0); NEUTROPHILS # (AUTO) 2.4 10^3/uL (1.5-6.6); NEUTROPHILS % (AUTO) 47.1 %; PLT - PLATELET COUNT 343 10^3/uL (130-450); RED BLOOD COUNT 5.01 10^6/uL (4.20-5.40); RED CELL DISTRIBUTION WIDTH 13.4 % (12.0-15.0)
[2021-05-01 09:29] LABS: ALBUMIN 4.7 g/dL (3.2-5.5); ALBUMIN/GLOBULIN RATIO 1.7 (1.0-2.2); ALKALINE PHOSPHATASE 101 IU/L (42-121); ALT ALANINE AMINOTRANSFERASE 26 IU/L (10-60); AST ASPARTATE AMINOTRANSFERASE 22 IU/L (10-42); BACTERIA,URINE Few /HPF (None Seen); BILIRUBIN,TOTAL 0.7 mg/dL (0.2-1.0); BUN - BLOOD UREA NITROGEN 23 mg/dL (6-20); CALCIUM 10.5 mg/dL (8.5-10.3); CARBON DIOXIDE - CO2 26 mmol/L (21-32); CHLORIDE 105 mmol/L (101-111); CHOL/HDL RATIO 3.9 (<4.4); CHOLESTEROL 278 mg/dL; CLARITY,URINE CLEAR (CLEAR); CREATININE 0.7 mg/dL (0.4-1.0); GFR - MDRD 83 (>89); GLUCOSE 93 mg/dL (70-100); HDL CHOLESTEROL 71 mg/dL; LDL CHOLESTEROL,CALCULATED 199 mg/dL; LDL/HDL RATIO 2.8 (<4.4); POTASSIUM 4.2 mmol/L (3.5-5.0); RBC,URINE 0-5 /HPF (0-5); SODIUM 143 mmol/L (135-145); SQUAMOUS EPITHELIAL CELL,UR FEW Squamous (<= Few); TOTAL PROTEIN 7.5 g/dL (6.7-8.2); TRIGLYCERIDES 41 mg/dL; VLDL CHOLESTEROL 8 mg/dL; WBC,URINE 0-3 /HPF (0-5)
[2021-05-01 09:40] LABS: THYROID STIMULATING HORMONE 1.7 uIU/mL (0.34-5.60)
== END 2021-05-01 08:38 | disposition home or self-care (01) ==
LOC: LAB 08:37
PROVIDERS: ATTEND Nurse Practitioner
DX: E78.2 Mixed hyperlipidemia (principal); R53.83 Other fatigue
CPT/HCPCS: 36415; 80053; 80061; 81001; 83721; 84443; 85025; 87086